=== PATIENT | female | born 1950 | race Hispanic/Latino ===

== ENCOUNTER → 2018-07-25 | Outpatient (CLI) | payer OTHER, MEDICARE | END | disposition home or self-care (01) | LOC: RAH 07:55 | PROVIDERS: ATTEND Family Medicine | DX: Z12.31 Encounter for screening mammogram for malignant neoplasm of breast (principal) | CPT/HCPCS: 77067 ==

== ENCOUNTER 2021-06-04 15:28 | Emergency (ER) | payer OTHER, MEDICARE ==
[~2021-06-04] VITALS: Ht 152.4 cm; Wt 68.0 kg
[2021-06-04] MEDS ORDERED: MECLIZINE HCL 25 MG TABLET PO ONE (16:30)
[2021-06-04 16:45] VITALS: BP 110/64
[2021-06-04] MEDS ORDERED: MECL-160 PO (16:50)
[2021-06-04 16:55] LABS: BASOPHILS % (AUTO) 0.5 % (0.0-5.0); EOSINOPHILS % (AUTO) 1.7 % (0.0-8.0); LYMPHOCYTES % (AUTO) 26.3 % (21.0-51.0); MEAN CORPUSCULAR HEMOGLOBIN 25.7 pg (27.0-33.0); MEAN CORPUSCULAR HGB CONC 31.8 g/dL (32.0-36.0); MEAN CORPUSCULAR VOLUME 80.7 fL (79-99); MONOCYTES % (AUTO) 6.8 % (3.0-13.0); NEUTROPHILS % (AUTO) 64.4 % (40.0-77.0); PLATELET COUNT (AUTO) 271 K/uL (130-400); RED BLOOD CELL COUNT(AUTO) 4.71 MIL/uL (4.00-5.50); RED CELL DISTRIBUTION WIDTH 15.3 % (11.0-15.5); WHITE BLOOD COUNT (AUTO) 10.1 K/uL (4.8-10.8)
[2021-06-04 17:06] LABS: CREATININE 0.7 mg/dL (0.5-1.5); POTASSIUM 4.3 mmol/L (3.5-5.1)
[2021-06-04 17:10] LABS: ALBUMIN 3.9 g/dL (3.5-5.0); BILIRUBIN,TOTAL 0.6 mg/dL (0.2-1.0); TOTAL PROTEIN, SERUM 8.3 g/dL (6.0-8.3)
[2021-06-04 17:44] VITALS: BP 114/71
== END 2021-06-04 17:51 | disposition home or self-care (01) ==
LOC: EDH 15:28
DX: R42 Dizziness and giddiness (principal); E78.00 Pure hypercholesterolemia, unspecified; I10 Essential (primary) hypertension
CPT/HCPCS: 36415; 70551; 80053; 85025; 93005

== ENCOUNTER → 2025-04-07 | Outpatient (CLI) | payer OTHER, MEDICARE ==
[~2025-04-07] MED LIST: MECL-302 PO
--- NOTE | 2025-04-07 23:48 | HMCIMG ---
EXAM: CT examination of the Brain without contrast. CLINICAL HISTORY: Trauma. TECHNIQUE: Thin collimated axial CT images of the brain were obtained with sagittal and coronal reformatted images also submitted. CT scan done according to ALARA (As Low as Reasonably Achievable). CONTRAST USED: MRI brain without contrast dated 06/04/21. COMPARISON: None provided. FINDINGS: No acute intracranial abnormality is present. No acute cortical infarction, hemorrhage, mass or mass effect. No hydrocephalus or abnormal extra-axial fluid collections. The posterior fossa is unremarkable. The skull base and calvarium are intact. The included portions of the paranasal sinuses and mastoid air cells are clear. IMPRESSION: No acute intracranial abnormality is present. No gross interval changes. /Karri
== END | disposition home or self-care (01) ==
LOC: RAH 13:00
PROVIDERS: ATTEND Internal Medicine
DX: S09.90XA Unspecified injury of head, initial encounter (principal); X58.XXXA Exposure to other specified factors, initial encounter; Y93.89 Activity, other specified; Y92.89 Other specified places as the place of occurrence of the external cause; Y99.8 Other external cause status
CPT/HCPCS: 70450